=== PATIENT | female | born 1965 | race Caucasian/White ===

== ENCOUNTER 2018-04-04 07:08 | Day surgery (SDC) | payer BC ==
[~2018-04-04 07:08] MED LIST: Acetaminophen/oxyCODONE 325-7.5 MG Tab PO ONE; ceFAZolin 2 GM in Premix Bag 1 BAG IV ONE
[2018-04-04] MEDS ORDERED: Scopolamine 1.5 MG Transdermal Patch TRDERM PRN (07:29)
--- NOTE | 2018-04-04 07:29 | PCM.PREANE ---
Preanesthetic Assessment - Anesthesia/Transfusion/Family Hx Anesthesia History: Prior Anesthesia Without Reaction Family History of Anesthesia Reaction: No Transfusion History: No Prior Transfusion(s) Intubation History: Unknown - Review of Systems General: No Symptoms Pulmonary: No Symptoms Cardiovascular: No Symptoms Gastrointestinal: Abdominal Pain Neurological: No Symptoms Other: Reports: None - Physical Assessment Height: 1.63 m Weight: 90.718 kg ASA Class: 2 Mental Status: Alert & Oriented x3 Airway Class: Mallampati = 2 Dentition: Reports: Normal Dentition, Broken Tooth/Teeth (right upper x1), Missing Tooth/Teeth (left upper x1) Thyro-Mental Finger Breadths: 3 Mouth Opening Finger Breadths: 2 ROM/Head Extension: Full Lungs: Clear to Auscultation, Normal Respiratory Effort Cardiovascular: Regular Rate, Regular Rhythm - Allergies Allergies/Adverse Reactions: Allergies Allergy/AdvReac Type Severity Reaction Status Date / Time Latex, Natural Rubber Allergy Burning Verified 04/01/18 16:44 - Blood Blood Available: No - Anesthesia Plan Pre-Op Medication Ordered: None - Acknowledgements Anesthesia Type Planned: General Anesthesia Pt an Appropriate Candidate for the Planned Anesthesia: Yes Alternatives and Risks of Anesthesia Discussed w Pt/Guardian: Yes Pt/Guardian Understands and Agrees with Anesthesia Plan: Yes PreAnesthesia Questionnaire HEENT History: Reports: Allergic Rhinitis, Other (See Below) Other HEENT History: uses reading glasses Cardiovascular History: Reports: High Cholesterol Gastrointestinal History: Reports: Cholelithiasis, Other (See Below) Other Gastrointestinal History: some heartburn 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: Neurological History: Reports: Migraines, Other (See Below) Other Neuro History: migranes during menopause- not now, has right side sciatic nerve pain Psychiatric History: Reports: Depression Other Psychiatric History: depression during menopause, no meds now Endocrine/Metabolic History: Reports: Obesity/BMI 30+ - Past Surgical History Female Surgical History: Reports: Section (x1 under GETA (breech - emergency C/S)) Musculoskeletal Surgical History: Reports: Other (See Below) Other Musculoskeletal Surgeries/Procedures:: removal of FB, foot - SUBSTANCE USE Smoking Status *Q: Never Smoker Recreational Drug Use History: No - HOME MEDS Home Medications: Home Meds . [No Known Home Meds] 04/01/18 [History] - CURRENT (IN HOUSE) MEDS Current Meds: Current Medications Discontinued Medications Cefazolin Sodium/Dextrose 2 gm (/ Premix) 50 mls @ 100 mls/hr IV ONETIME ONE Stop: 04/04/18 05:29 Oxycodone/Acetaminophen (Percocet 325-7.5 Mg) 1 tab PO ONETIME ONE Stop: 04/02/18 10:37 Oxycodone/Acetaminophen (Percocet 325-7.5 Mg) 1 tab PO ONETIME ONE Stop: 04/04/18 05:01
[2018-04-04] MEDS ORDERED: Octyl 2-Cyanoacrylate 1 Tube ONE (07:31)
[2018-04-04] MEDS ORDERED: Bupivacaine 25%/EPINEPHrine/PF 30 ML ONE (07:31)
[2018-04-04] MEDS ORDERED: Propofol 200 MG/20 ML SDV ONE (07:36)
[2018-04-04] MEDS ORDERED: Midazolam 1 MG/ML 2 ML SDV ONE (07:36)
[2018-04-04] MEDS ORDERED: Lidocaine 2% 5 ML SDV ONE (07:36)
[2018-04-04] MEDS ORDERED: fentaNYL 100 MCG/2 ML SDV ONE (07:36)
[2018-04-04] MEDS ORDERED: Rocuronium 10 MG/ML 10 ML Syringe ONE (07:36)
[2018-04-04] MEDS ORDERED: ceFAZolin 1 GM Vial ONE (07:42)
[2018-04-04] MEDS ORDERED: Ondansetron 4 MG/2 ML SDV ONE (08:10)
[2018-04-04] MEDS ORDERED: Dexamethasone 4 MG/ML 5 ML MDV ONE (08:10)
[2018-04-04] MEDS ORDERED: Morphine 10 MG/ML Syringe ONE (08:25)
[2018-04-04] MEDS ORDERED: Neostigmine Methylsulfate 1 MG/ML 5 ML Syringe ONE (08:32)
[2018-04-04] MEDS ORDERED: Glycopyrrolate 0.2 MG/ML SDV ONE (08:32)
--- NOTE | 2018-04-04 09:30 | PCM.OPNOTE ---
- General Post-Op/Procedure Note Date of Surgery/Procedure: 04/04/18 Operative Procedure(s): lap saima Findings: gb was very distended, wall was thickened, adherence to surround was there; several large gallstones; [id number] Pre Op Diagnosis: chronic and acute cholecystitis Post-Op Diagnosis: Same Anesthesia Technique: General ET Tube Primary Surgeon: Tato Cordova Pathology: sent Complications: None Condition: Good
[2018-04-04] MEDS ORDERED: Acetaminophen/oxyCODONE 325-5 MG Tab PO ONE (09:33)
[2018-04-04] MEDS: fentaNYL 100 MCG/2 ML SDV IVPUSH PRN ×2 (09:42→09:48)
--- NOTE | 2018-04-04 10:06 | PCM.POSTAN ---
POST ANESTHESIA ASSESSMENT - MENTAL STATUS Mental Status: Alert, Oriented - RESPIRATORY Respiratory Status: Respiratory Rate WNL, Airway Patent, O2 Saturation Stable - CARDIOVASCULAR CV Status: Pulse Rate WNL, Blood Pressure Stable - GASTROINTESTINAL GI Status: No Symptoms - PAIN Pain Score: 2 - POST OP HYDRATION Hydration Status: Adequate & Stable - OBSERVATIONS Free Text/Narrative:: no anesthesia problems
--- NOTE | 2018-04-04 12:04 | OR ---
SURGEON: Tato Cordova MD DATE OF PROCEDURE: 04/04/2018 PREOPERATIVE DIAGNOSIS: [id number] cholecystitis. POSTOPERATIVE DIAGNOSIS: Ewawk-la-feqfrjr cholecystitis. PROCEDURE PERFORMED: Laparoscopic cholecystectomy. COMPLICATIONS: None. FINDINGS: Gallbladder was severely adhered to surrounding organ and wall was thickened, consistent with chronic cholecystitis, and the gallbladder was so distended, it required aspiration before the surgery. At the end of surgery, Surgicel put for assisting hemostasis. PROCEDURE NOTE: The patient was taken to the operating room and placed in the supine position. After the intubation of general endotracheal anesthesia, the patient's abdomen was prepped and draped in the usual sterile fashion. Using Optiview, a 12 mm trocar was placed supraumbilically and then followed with pneumoperitoneum. A 5 mm trocar was placed in the epigastrium and two 5 mm trocars placed in the right upper quadrant. The placement of the last three trocars was done under direct video supervision. Upon gaining entrance to the abdominal cavity, an extensive examination was then performed. The gallbladder was located and identified and retracted to the dome of the liver at the triangle of Calot. The cystic duct was clipped three more times and then using the endoscopic clip, was transected with placement of the endoscopic clip and transection was performed with care, ensuring the posterior prong of the instruments were clearly visualized prior to exercising the procedure. The gallbladder was dissected using electrocautery out of the liver bed and then removed using endoscopic bag through the umbilical site. The gallbladder was removed en bloc and there was no bile spillage and this was then followed with extensive irrigation until the bile was clear from blood and bile. The trocars were then removed under direct video supervision. The 12 mm umbilical site was then closed with deep stitches using 0 Vicryl followed with proximal stitches using 3-0 Vicryl and Dermabond. The other three trocar sites were closed with 3-0 Vicryl followed with approximation of skin with Dermabond. The patient was then awakened and extubated and transferred to the recovery room in hemodynamically stable condition. At the conclusion of the surgery, before closing the abdominal wound, instrument count and sponge count were done and were correct. The patient tolerated the procedure well and there were no intraoperative complications. Dr. Cordova was present through the whole procedure. Just before surgery, a timeout was called. The patient was identified and procedure identified and procedure started. Prior to the surgery, aspiration to decompress the gallbladder was required. At the end of the surgery, Surgicel inserted to help in the hemostasis. Intraoperative findings as dictated above. BERNICE / MONIKA /[id number]
== END 2018-04-04 11:05 | disposition home or self-care (01) ==
LOC: MW.SDS 07:08
PROVIDERS: ATTEND Surgery
DX: K80.12 Calculus of gallbladder with acute and chronic cholecystitis without obstruction (principal); E78.00 Pure hypercholesterolemia, unspecified; G43.909 Migraine, unspecified, not intractable, without status migrainosus; F32.9 Major depressive disorder, single episode, unspecified; E66.9 Obesity, unspecified; Z68.34 Body mass index [BMI] 34.0-34.9, adult; Z98.891 History of uterine scar from previous surgery; Z91.040 Latex allergy status
CPT/HCPCS: 47562; 81025; A9270; J0690; J1100; J2250; J2270; J2405; J3010; J2704